=== PATIENT | female | born 1965 | race Caucasian/White ===

== ENCOUNTER 2018-10-16 10:34 | Emergency (ER) | payer BC ==
[~2018-10-16] VITALS: Ht 162.6 cm; Wt 120.7 kg
[2018-10-16 10:41] VITALS: Ht 162.6 cm; Wt 120.7 kg
[2018-10-16 11:18] VITALS: BP 154/104
== END 2018-10-16 11:18 | disposition home or self-care (01) ==
LOC: ED 10:34
DX: R10.32 Left lower quadrant pain (principal); R11.0 Nausea; R42 Dizziness and giddiness; I10 Essential (primary) hypertension; Z90.49 Acquired absence of other specified parts of digestive tract; Z90.89 Acquired absence of other organs
CPT/HCPCS: J1885